=== PATIENT | female | born 1990 | race Caucasian/White ===

== ENCOUNTER 2017-01-01 15:25 | Emergency (ER) | payer OTHER ==
[~2017-01-01] VITALS: Ht 157.5 cm; Wt 43.5 kg
--- NOTE | ~2017-01-01 | CT71 ---
[facility] A Service of [facility] RADIOLOGY TEXT RESULTS PATIENT: MORGAN BLEDSOE LOCATION: SED : 88 UNIT #: [id number] AGE: [address]: Willard Xie MD SEX: F ORDER DR: [id number] [address] [address] [id number] MR#: [id number] Acc #: [id number] NAME: MORGAN BLEDSOE : 1990 SEX: F STUDY DATE/TIME: 01/01/2017 16:14 UNIT: SED ROOM: STUDY DESCRIPTION: CT Head Wo Contrast Attending Physician: Willard Xie M.D. Ordering Physician: Willard Xie M.D. Primary Care Physician: Primary Care Physician No MEDICAL IMAGING REPORT This report is preliminary unless electronic signature is present. EXAM CT head without contrast DATE 01/01/2017 HISTORY Headache, which began 1 month ago with neck pain issues. COMPARISON None. FINDINGS This CT exam was performed with one or more of the following radiation dose reduction techniques: Automatic exposure control, adjustment of mA and/or kV according to patient size, and iterative reconstruction. There is near-complete right sphenoid sinus opacification, and there is some nodular mucosal thickening in the bilateral maxillary sinuses, mild ethmoid sinus mucosal thickening. Findings are consistent with the appearance of sinusitis. Mastoid air cells are clear. No calvarial abnormality. No acute intracranial hemorrhage, mass lesion, mass effect or midline shift, or evidence of acute or evolving infarct. Ventricular configuration is normal. IMPRESSION 1. Features of sinusitis. Near-complete right sphenoid sinus opacification. 2. No acute intracranial findings. [facility] A Service of [facility] RADIOLOGY TEXT RESULTS PATIENT: MORGAN BLEDSOE LOCATION: SED : [birth year] UNIT #: [id number] AGE: [address]: Willard Xie MD SEX: F ORDER DR: Dictated by... Tasha Ferro M.D. THIS IS AN ELECTRONICALLY VERIFIED REPORT Tasha Ferro M.D. at 01/02/2017 9:55 AM SHAKIRA/mady TD: 01/01/2017 18:41 JOB #: [id number] MEDICAL IMAGING REPORT Page 1 of 1
[~2017-01-01 15:25] MED LIST: CIPRO PO; FLEXERIL10 MG PO; NO MEDICATIONS; SUDOGEST30 M1 PO; ULTRAM; VOLTAREN75 MG PO
== END 2017-01-01 16:53 | disposition home or self-care (01) ==
LOC: SED 15:25
DX: J01.90 Acute sinusitis, unspecified (principal); F17.200 Nicotine dependence, unspecified, uncomplicated; Z79.899 Other long term (current) drug therapy
CPT/HCPCS: 70450; 99284